=== PATIENT | female | born 1950 | race Caucasian/White ===

== ENCOUNTER 2020-06-21 10:59 | Emergency (ER) | payer BC, MEDICARE ==
--- NOTE | 2020-06-21 11:19 | ERPHSYRPT ---
- History of Present Illness Time Seen by Provider: 06/21/20 11:19 Historian: patient Exam Limitations: no limitations Physician History: This is a 70-year-old white female who in 1994 was initially diagnosed with breast cancer and has had recurrent disease on at least one other occasion in 2009. Also in 2009 she was diagnosed with pulmonary emboli and was placed on C oumadin which she is currently taking. Mid August 2019 she was having some lymphedema of the right upper extremities. She has had a mastectomy with right axillary lymphadenectomy. The lymphedema has increased and this is being followed by breast surgeon and breast clinic at [facility]. It is very painful and yesterday, the patient was told that she had cervical spine metastatic disease. Patient's [place] dose was increased because of her increased right upper extremity and neck pain. In addition, they added gabapentin for pain symptom control. She did take 2 doses of the increased [place] dose since she obtained a new prescription. However, she did not take the gabapentin at night last night because her was at work and she did not want to be too sedated. This morning, approximately 9 AM, she had sudden onset of nausea. She has not vomited but she feels the nausea has worsened. Patient did consume some crackers but this did not help. Patient denies chest pain. She felt as though she was having a panic attack. She has no abdominal pain. She has no nausea vomiting or diarrhea symptoms. She is here primarily because of the nausea that came on suddenly and has been persistent. Timing/Duration: today Activities at Onset: none Abdominal Pain Onset Location: other Pain Radiation: no radiation Severity of Pain-Max: none (No abdominal pain) Severity of Pain-Current: none Modifying Factors: Improves With: other (Nausea but no vomiting) Associated Symptoms: nausea, neck pain (Chronic), No loss of appetite, No vomiting Previous symptoms: no prior history Allergies/Adverse Reactions: No Known Drug Allergies Allergy (Verified 06/21/20 11:20) Home Medications: Cyanocobalamin/Folic Acid [Vitamin N42-Kbhln Acid Tablet] 1 tab PO HS 03/05/15 [History] Furosemide [Lasix] 40 mg PO DAILY 03/05/15 [History] Levothyroxine Sodium 50 mcg PO DAILY 03/05/15 [History] Pyridoxine HCl 100 mg [Vitamin B-6 (Pyridoxine) 100 MG] 100 mg PO HS 03/05/15 [History] Rizatriptan Benzoate [Rizatriptan] 10 mg PO DAILY PRN PRN 03/05/15 [History] Warfarin Sodium 2.5 mg [Coumadin 2.5 MG] 6 mg PO HS 03/05/15 [History] nadoloL [Nadolol] 20 mg PO HS 03/05/15 [History] Gabapentin 2 tab PO TID 06/21/20 [History] Hydrocodone/Acetaminophen [Hydrocodone-Acetamin 7.5-325] 1 tab PO DAILY PRN 06/21/20 [History] Hx Tetanus, Diphtheria Vaccination/Date Given: No Hx Influenza Vaccination/Date Given: No Hx Pneumococcal Vaccination/Date Given: No Travel Risk - International Travel Have you traveled outside of the country in past 3 weeks: No - Coronavirus Screening Are you exhibiting any of the following symptoms?: No Close contact with a COVID-19 positive Pt in past 14-21 Days: No - Review of Systems Constitutional: No Symptoms Eyes: No Symptoms Ears, Nose, & Throat: No Symptoms Respiratory: No Symptoms Cardiac: No Symptoms Abdominal/Gastrointestinal: Nausea, No Abdominal Pain, No Vomiting Genitourinary Symptoms: No Symptoms Musculoskeletal: No Symptoms Skin: No Symptoms Neurological: No Symptoms Psychological: No Symptoms Endocrine: No Symptoms Hematologic/Lymphatic: No Symptoms Immunological/Allergic: No Symptoms All Other Systems: Reviewed and Negative - Past Medical History Pertinent Past Medical History: Yes Neurological History: Migraines, Peripheral Neuropathy ENT History: No Pertinent History Cardiac History: Hypertension Respiratory History: Pulmonary Embolism Endocrine Medical History: Diabetes Type II, Hypothyroidism Musculoskeletal History: No Pertinent History GI Medical History: No Pertinent History History: No Pertinent History Psycho-Social History: No Pertinent History Female Reproductive Disorders: Breast Cancer Other Medical History: Pt has had Breast CA on both sides, lumpectomies, no masectomies, lymphnodes only removed from R side. MRI at [facility] 12/14/19 and was told everything was fine. Radiation 3 times, Chemo 2x. Last CA diagnosis 2009. Pt has been CA free since 2011. Neuropathy in B hands. - Past Surgical History Past Surgical History: Yes Neuro Surgical History: No Pertinent History Cardiac: No Pertinent History Respiratory: No Pertinent History Gastrointestinal: Appendectomy Genitourinary: No Pertinent History Musculoskeletal: No Pertinent History Female Surgical History: No Pertinent History Other Surgical History: LUMPECTOMY IN BOTH BREASTS - Social History Smoking Status: Never smoker Exposure to second hand smoke: No Drug Use: none Patient Lives Alone: No - Nursing Vital Signs Nursing Vital Signs: Initial Vital Signs Temperature 98.3 F 06/21/20 11:09 Pulse Rate 78 06/21/20 11:09 Respiratory Rate 20 06/21/20 11:09 Blood Pressure 179/78 06/21/20 11:09 O2 Sat by Pulse Oximetry 98 06/21/20 11:09 Pain Scale Pain Intensity 0 - Physical Exam General Appearance: no apparent distress, alert, anxiety Eye Exam: PERRL/EOMI, eyes nml inspection Ears, Nose, Throat Exam: normal ENT inspection, moist mucous membranes Neck Exam: normal inspection, non-tender, supple, full range of motion Respiratory Exam: normal breath sounds, lungs clear, airway intact, No chest tenderness, No respiratory distress Cardiovascular Exam: regular rate/rhythm, normal heart sounds, normal peripheral pulses Gastrointestinal/Abdomen Exam: soft, normal bowel sounds, No tenderness Pelvic Exam: not done Rectal Exam: not done Back Exam: normal inspection, normal range of motion, No CVA tenderness, No vertebral tenderness Extremity Exam: normal inspection, normal range of motion, pelvis stable Neurologic Exam: alert, oriented x 3, cooperative, 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 No comparison EKG available) Ordered Tests: Active Orders 24 hr Category Date Time Status EKG-ER Only STAT Care 06/21/20 11:37 Active IV Insertion STAT Care 06/21/20 11:37 Active AMYLASE Stat Lab 06/21/20 11:54 Completed CBC W DIFF Stat Lab 06/21/20 11:54 Completed CMP Stat Lab 06/21/20 11:54 Completed LIPASE Stat Lab 06/21/20 11:54 Completed Lactic Acid Stat Lab 06/21/20 11:37 Completed PROTIME WITH INR Stat Lab 06/21/20 11:54 Completed T4 (Thyroxine) Stat Lab 06/21/20 11:54 Completed TROPONIN Q3H Lab 06/21/20 11:54 Completed TROPONIN Q3H Lab 06/21/20 14:45 Ordered TROPONIN Q3H Lab 06/21/20 17:45 Ordered TROPONIN Q3H Lab 06/21/20 20:45 Ordered TROPONIN Q3H Lab 06/21/20 23:45 Ordered TSH [TSH, 3RD Generation] Stat Lab 06/21/20 11:54 Completed UA W/RFX UR CULTURE Stat Lab 06/21/20 12:00 Completed Medication Summary Discontinued Medications Generic Name Dose Route Start Last Admin Trade Name Freq PRN Reason Stop Dose Admin Sodium Chloride 1,000 mls @ 999 mls/hr 06/21/20 11:37 06/21/20 13:01 Sodium Chloride 0.9% 1000 Ml IV 06/21/20 12:37 Infused .Q1H1M STA Infusion Sodium Chloride Confirm 06/21/20 11:48 Sodium Chloride 0.9% 1000 Ml Administered 06/21/20 11:49 Dose 1,000 mls @ ud .ROUTE .STK-MED ONE Lorazepam 1 mg 06/21/20 12:13 06/21/20 12:18 Ativan 2 Mg/1 Ml Vial IV 06/21/20 12:14 1 mg STAT ONE Administration Lorazepam Confirm 06/21/20 12:16 Ativan 2 Mg/1 Ml Vial Administered 06/21/20 12:17 Dose 2 mg .ROUTE .STK-MED ONE Ondansetron HCl 4 mg 06/21/20 11:37 06/21/20 11:49 Zofran 4 Mg/2 Ml Vial IV 06/21/20 11:38 4 mg STAT ONE Administration Ondansetron HCl Confirm 06/21/20 11:48 Zofran 4 Mg/2 Ml Vial Administered 06/21/20 11:49 Dose 4 mg .ROUTE .STK-MED ONE Lab/Rad Data: Laboratory Result Diagrams 06/21/20 11:54 06/21/20 11:54 Laboratory Results 06/21/20 06/21/20 06/21/20 Range/Units 12:00 11:54 11:54 WBC (4.0-10.5) K/mm3 RBC (4.1-5.4) M/mm3 Hgb (12.0-16.0) gm/dl Hct (35-47) % MCV (78-100) fl MCH (26-32) pg MCHC (32-36) g/dl RDW (11.5-14.0) % Plt Count (150-450) K/mm3 MPV (7.5-11.0) fl Gran % (36.0-66.0) % Eos # (Auto) (0-0.5) Absolute Lymphs (auto) (1.0-4.6) Absolute Monos (auto) (0.0-1.3) Lymphocytes % (24.0-44.0) % Monocytes % (0.0-12.0) % Eosinophils % (0.00-5.0) % Basophils % (0.0-0.4) % Absolute Granulocytes (1.4-6.9) Basophils # (0-0.4) PT (9.95-12.35) SECONDS INR (0.8-3.0) Sodium (137-145) mmol/L Potassium (3.5-5.1) mmol/L Chloride (98-107) mmol/L Carbon Dioxide (22-30) mmol/L Anion Gap (5-15) MEQ/L BUN (7-17) mg/dL Creatinine (0.52-1.04) mg/dL Estimated GFR ML/MIN Glucose (74-106) mg/dL Lactic Acid (0.4-2.0) Calcium (8.4-10.2) mg/dL Total Bilirubin (0.2-1.3) mg/dL AST (14-36) U/L ALT (0-35) U/L Alkaline Phosphatase (38-126) U/L Troponin I < 0.012 (0.000-0.034) ng/mL Serum Total Protein (6.3-8.2) g/dL Albumin (3.5-5.0) g/dL Amylase (30-110) U/L Lipase (23-300) U/L Thyroxine (T4) 12.3 H (5.53-10.96) ug/dL TSH 3rd Generation 5.190 H (0.47-4.68) mIU/L Urine Color YELLOW (YELLOW) Urine Appearance SLIGHTLY CLOUDY (CLEAR) Urine pH 7.0 (5-6) Ur Specific [place] 1.008 (1.005-1.025) Urine Protein NEGATIVE (Negative) Urine Ketones NEGATIVE (NEGATIVE) Urine Blood NEGATIVE (0-5) Sanjiv/ul Urine Nitrite NEGATIVE (NEGATIVE) Urine Bilirubin NEGATIVE (NEGATIVE) Urine Urobilinogen NEGATIVE (0-1) mg/dL Ur Leukocyte Esterase NEGATIVE (NEGATIVE) Urine WBC (Auto) 3-5 (0-5) /HPF Urine RBC (Auto) NONE (0-2) /HPF U Epithel Cells (Auto) RARE (FEW) /HPF Urine Bacteria (Auto) NONE (NEGATIVE) /HPF Urine Mucus (Auto) SLIGHT (NEGATIVE) /HPF Urine Culture Reflexed NO (NO) Urine Glucose NEGATIVE (NEGATIVE) mg/dL 06/21/20 06/21/20 06/21/20 Range/Units 11:54 11:54 11:54 WBC 11.8 H (4.0-10.5) K/mm3 RBC 5.27 (4.1-5.4) M/mm3 Hgb 15.5 (12.0-16.0) gm/dl Hct 46.1 (35-47) % MCV 87.5 (78-100) fl MCH 29.4 (26-32) pg MCHC 33.6 (32-36) g/dl RDW 14.3 H (11.5-14.0) % Plt Count 299 (150-450) K/mm3 MPV 8.5 (7.5-11.0) fl Gran % 72.8 H (36.0-66.0) % Eos # (Auto) 0.06 (0-0.5) Absolute Lymphs (auto) 1.92 (1.0-4.6) Absolute Monos (auto) 1.19 (0.0-1.3) Lymphocytes % 16.3 L (24.0-44.0) % Monocytes % 10.1 (0.0-12.0) % Eosinophils % 0.5 (0.00-5.0) % Basophils % 0.3 (0.0-0.4) % Absolute Granulocytes 8.55 H (1.4-6.9) Basophils # 0.03 (0-0.4) PT 70.8 H (9.95-12.35) SECONDS INR 6.22 H* (0.8-3.0) Sodium 138 (137-145) mmol/L Potassium 3.7 (3.5-5.1) mmol/L Chloride 98 (98-107) mmol/L Carbon Dioxide 34 H (22-30) mmol/L Anion Gap 9.9 (5-15) MEQ/L BUN 13 (7-17) mg/dL Creatinine 0.66 (0.52-1.04) mg/dL Estimated GFR > 60.0 ML/MIN Glucose 140 H (74-106) mg/dL Lactic Acid (0.4-2.0) Calcium 8.8 (8.4-10.2) mg/dL Total Bilirubin 0.70 (0.2-1.3) mg/dL AST 56 H (14-36) U/L ALT 32 (0-35) U/L Alkaline Phosphatase 134 H (38-126) U/L Troponin I (0.000-0.034) ng/mL Serum Total Protein 8.0 (6.3-8.2) g/dL Albumin 4.3 (3.5-5.0) g/dL Amylase 36 (30-110) U/L Lipase 74 (23-300) U/L Thyroxine (T4) (5.53-10.96) ug/dL TSH 3rd Generation (0.47-4.68) mIU/L Urine Color (YELLOW) Urine Appearance (CLEAR) Urine pH (5-6) Ur Specific [place] (1.005-1.025) Urine Protein (Negative) Urine Ketones (NEGATIVE) Urine Blood (0-5) Sanjiv/ul Urine Nitrite (NEGATIVE) Urine Bilirubin (NEGATIVE) Urine Urobilinogen (0-1) mg/dL Ur Leukocyte Esterase (NEGATIVE) Urine WBC (Auto) (0-5) /HPF Urine RBC (Auto) (0-2) /HPF U Epithel Cells (Auto) (FEW) /HPF Urine Bacteria (Auto) (NEGATIVE) /HPF Urine Mucus (Auto) (NEGATIVE) /HPF Urine Culture Reflexed (NO) Urine Glucose (NEGATIVE) mg/dL 06/21/20 Range/Units 11:37 WBC (4.0-10.5) K/mm3 RBC (4.1-5.4) M/mm3 Hgb (12.0-16.0) gm/dl Hct (35-47) % MCV (78-100) fl MCH (26-32) pg MCHC (32-36) g/dl RDW (11.5-14.0) % Plt Count (150-450) K/mm3 MPV (7.5-11.0) fl Gran % (36.0-66.0) % Eos # (Auto) (0-0.5) Absolute Lymphs (auto) (1.0-4.6) Absolute Monos (auto) (0.0-1.3) Lymphocytes % (24.0-44.0) % Monocytes % (0.0-12.0) % Eosinophils % (0.00-5.0) % Basophils % (0.0-0.4) % Absolute Granulocytes (1.4-6.9) Basophils # (0-0.4) PT (9.95-12.35) SECONDS INR (0.8-3.0) Sodium (137-145) mmol/L Potassium (3.5-5.1) mmol/L Chloride (98-107) mmol/L Carbon Dioxide (22-30) mmol/L Anion Gap (5-15) MEQ/L BUN (7-17) mg/dL Creatinine (0.52-1.04) mg/dL Estimated GFR ML/MIN Glucose (74-106) mg/dL Lactic Acid 1.0 (0.4-2.0) Calcium (8.4-10.2) mg/dL Total Bilirubin (0.2-1.3) mg/dL AST (14-36) U/L ALT (0-35) U/L Alkaline Phosphatase (38-126) U/L Troponin I (0.000-0.034) ng/mL Serum Total Protein (6.3-8.2) g/dL Albumin (3.5-5.0) g/dL Amylase (30-110) U/L Lipase (23-300) U/L Thyroxine (T4) (5.53-10.96) ug/dL TSH 3rd Generation (0.47-4.68) mIU/L Urine Color (YELLOW) Urine Appearance (CLEAR) Urine pH (5-6) Ur Specific [place] (1.005-1.025) Urine Protein (Negative) Urine Ketones (NEGATIVE) Urine Blood (0-5) Sanjiv/ul Urine Nitrite (NEGATIVE) Urine Bilirubin (NEGATIVE) Urine Urobilinogen (0-1) mg/dL Ur Leukocyte Esterase (NEGATIVE) Urine WBC (Auto) (0-5) /HPF Urine RBC (Auto) (0-2) /HPF U Epithel Cells (Auto) (FEW) /HPF Urine Bacteria (Auto) (NEGATIVE) /HPF Urine Mucus (Auto) (NEGATIVE) /HPF Urine Culture Reflexed (NO) Urine Glucose (NEGATIVE) mg/dL - Progress Progress: improved, re-examined Counseled pt/family regarding: lab results, diagnosis, need for follow-up - Departure Departure Disposition: Home Clinical Impression: Nausea, Anxiety, Over-anticoagulated Condition: Stable Critical Care Time: No Referrals: CRISTINA COLÓN [NON-STAFF Y W/O PRIVILEGES] - Additional Instructions: Hold your Coumadin/warfarin medication today and tomorrow morning and contact your prescribing physician tomorrow morning to determine further management of your elevated INR. Also obtain a follow-up appointment to discuss management of anxiety issues Prescriptions: Alprazolam 0.25 mg [xanAX 0.25 MG] 0.25 mg PO TID PRN #10 tablet MDD 3 PRN Reason: Anxiety
[2020-06-21] MEDS ORDERED: Sodium Chloride 0.9% 1000 ML 1,000 ML IV STA (11:37)
[2020-06-21] MEDS ORDERED: Zofran 4 MG/2 ML VIAL IV ONE (11:37)
[2020-06-21] MEDS ORDERED: Zofran 4 MG/2 ML VIAL ONE (11:48)
[2020-06-21] MEDS ORDERED: Sodium Chloride 0.9% 1000 ML 1,000 ML ONE (11:48)
[2020-06-21 11:59] LABS: Absolute Neutrophil Ct (ANC) 8.55 (1.4-6.9); BASOPHIL % 0.3 % (0.0-0.4); Basophil (Absolute #) 0.03 (0-0.4); Eosinophil % 0.5 % (0.00-5.0); Eosinophil (Absolute #) 0.06 (0-0.5); Hematocrit 46.1 % (35-47); Hemoglobin 15.5 gm/dl (12.0-16.0); Lymphocyte (Absolute #) 1.92 (1.0-4.6); Lymphocytes % 16.3 % (24.0-44.0); Mean Cell Volume 87.5 fl (78-100); Mean Corpuscular Hemoglobin 29.4 pg (26-32); Mean Corpuscular Hgb Concent. 33.6 g/dl (32-36); Mean Platelet Volume 8.5 fl (7.5-11.0); Monocyte (Absolute #) 1.19 (0.0-1.3); Monocytes % 10.1 % (0.0-12.0); Neutrophil % 72.8 % (36.0-66.0); Platelet Count 299 K/mm3 (150-450); Red Blood Count 5.27 M/mm3 (4.1-5.4); Red Cell Distribution Width 14.3 % (11.5-14.0); White Blood Count 11.8 K/mm3 (4.0-10.5)
[2020-06-21 12:12] LABS: ALBUMIN 4.3 g/dL (3.5-5.0); ALKALINE PHOSPHATASE 134 U/L (38-126); AMYLASE 36 U/L (30-110); ANION GAP 9.9 MEQ/L (5-15); BLOOD UREA NITROGEN 13 mg/dL (7-17); CHLORIDE 98 mmol/L (98-107); Calcium 8.8 mg/dL (8.4-10.2); Carbon Dioxide 34 mmol/L (22-30); Creatinine 1 0.66 mg/dL (0.52-1.04); EST GLOMERULAR FILTRATION RATE > 60.0 ML/MIN; Glucose 140 mg/dL (74-106); LIPASE 74 U/L (23-300); Potassium 3.7 mmol/L (3.5-5.1); SGOT/AST 56 U/L (14-36); SGPT/ALT 32 U/L (0-35); SODIUM 138 mmol/L (137-145)
[2020-06-21] MEDS ORDERED: Ativan 2 MG/1 ML VIAL IV ONE (12:13)
[2020-06-21 12:15] LABS: PROTIME 70.8 SECONDS (9.95-12.35)
[2020-06-21] MEDS ORDERED: Ativan 2 MG/1 ML VIAL ONE (12:16)
[2020-06-21 12:18] LABS: Appearance SLIGHTLY CLOUDY (CLEAR); Bilirubin NEGATIVE (NEGATIVE); Blood NEGATIVE Ery/ul (0-5); Epithelial Cells RARE /HPF (FEW); Glucose NEGATIVE (NEGATIVE); Ketones NEGATIVE (NEGATIVE); Leukocyte Esterase NEGATIVE (NEGATIVE); Mucus SLIGHT /HPF (NEGATIVE); Nitrite NEGATIVE (NEGATIVE); Protein,Urine Dip NEGATIVE (Negative); Specific Gravity 1.008 (1.005-1.025); Urobilinogen NEGATIVE mg/dL (0-1)
[2020-06-21 12:27] LABS: INR 6.22 (0.8-3.0)
[2020-06-21 12:43] LABS: T4 (Thyroxine) 12.3 ug/dL (5.53-10.96); TSH, 3RD Generation 5.19 mIU/L (0.47-4.68)
[2020-06-21 13:36] VITALS: BP 182/79; PULSE 81; O2SAT 96
== END 2020-06-21 13:36 | disposition home or self-care (01) ==
LOC: ED 10:59
DX: F41.9 Anxiety disorder, unspecified (principal); R79.1 Abnormal coagulation profile; Z85.3 Personal history of malignant neoplasm of breast; Z79.899 Other long term (current) drug therapy; I10 Essential (primary) hypertension; G62.9 Polyneuropathy, unspecified; Z86.711 Personal history of pulmonary embolism; E11.9 Type 2 diabetes mellitus without complications; E03.9 Hypothyroidism, unspecified
CPT/HCPCS: 36000; 36415; 80053; 81001; 82150; 83605; 83690; 84436; 84443; 84484; 85025; 85610; 93005; 96360; 96374; 96375; 99284; J2060; J2405